=== PATIENT | male | born 1990 | race Caucasian/White ===

== ENCOUNTER 2018-08-04 13:01 | Inpatient (IN) | payer OTHER ==
[~2018-08-04] VITALS: Ht 185.4 cm; Wt 113.4 kg
[2018-08-04] MEDS ORDERED: MULTIVITAMINS1 EAC7 PO (14:05)
[2018-08-04 14:30] LABS: HEMATOCRIT 44.9 % (42.0-52.0); HEMOGLOBIN 15.5 gm/dL (14.0-18.0); MCH 30.9 pg (26.0-34.0); MCHC 34.6 g/dL (28.0-37.0); MCV 89.5 fL (80.0-100.0); RBC 5.02 mil/uL (4.50-6.00); WBC 6.9 thou/uL (4.0-11.0)
[2018-08-04 14:40] LABS: APTT 26.3 Seconds (25.0-31.3); PROTIME 10.2 Seconds (9.20-11.50)
[2018-08-04 14:43] LABS: ALBUMIN 4.1 g/dL (3.4-5.0); CALCIUM 9.3 mg/dL (8.5-10.1); CREATININE 1.1 mg/dL (0.6-1.3); POTASSIUM 3.8 mmol/L (3.5-5.1); TOTAL BILIRUBIN 0.5 mg/dL (<0.1-1.0); TOTAL PROTEIN 7.5 g/dL (6.4-8.2)
[2018-08-04 15:00] VITALS: BP 124/64
[2018-08-04 15:14] LABS: URINE BILIRUBIN NEGATIVE (Negative); URINE BLOOD NEGATIVE (Negative); URINE CLARITY CLEAR; URINE COLOR YELLOW; URINE GLUCOSE-RANDOM NEGATIVE (Negative); URINE KETONES NEGATIVE (Negative); URINE LEUKOCYTES-REFLEX NEGATIVE (Negative); URINE NITRITE-REFLEX NEGATIVE (Negative); URINE PROTEIN NEGATIVE (Negative); URINE SPECIFIC GRAVITY <= 1.005 (1.005-1.030); URINE UROBILINOGEN 0.2 E.U./dl (0.2-1.0)
[2018-08-04 16:52] LABS: CSF PROTEIN 32.9 mg/dl (15-45)
[2018-08-04 17:09] LABS: CSF CLARITY CLEAR; CSF COLOR COLORLESS; VOLUME 12 ml
[2018-08-04 17:10] LABS: CSF RBC 0 /mm3; CSF WBC 2 /mm3 (0-10)
[2018-08-04 17:20] LABS: CSF GLUCOSE 56 mg/dl (40-70)
[2018-08-04 18:00] VITALS: BP 127/82
[2018-08-04 19:00] VITALS: BP 128/76
[2018-08-04 20:00] VITALS: BP 144/87
[2018-08-04 22:01] VITALS: BP 124/37
[2018-08-05 00:01] VITALS: BP 110/53
[2018-08-05 02:00] VITALS: BP 110/60
[2018-08-05 04:00] VITALS: BP 99/59
[2018-08-05 06:00] VITALS: BP 103/64
[2018-08-05 10:00] VITALS: BP 120/65
--- NOTE | 2018-08-05 12:59 | CON ---
[address] [address] CONSULTATION Name: OMIDLISAAllyssa BERTA Room: [address] IN [facility]#: [id number] Admission: 08/04/18 Attend Phys: Eloisa Jo Discharge: Date of : 86 Report #: [id number] THIS REPORT FOR: //name// CC: Srinivasa Lechuga DO HISTORY OF PRESENT ILLNESS: The patient is a 27-year-old male who today noticed some paresthesias of the feet and then of the hands in a somewhat unusual distribution. As he was walking, he also noticed some proximal muscle weakness. He has never had symptoms like this before. With his insurance, he had to see his primary care physician who thought that perhaps he could have Guillain-[place] syndrome. He was then referred to the Emergency Room and admitted to the Intensive Care Unit for further evaluation. As it turns out, both his mother and his grandmother both had Guillain-[place]. The patient states that his symptoms have progressed over the last several days and he feels generally weak. He has not had any difficulty breathing. He has no double vision. He has no difficulty swallowing and has had no difficulty eating. The patient has had a lumbar puncture and this was unremarkable. The patient does have a history of upper respiratory tract infection 2 weeks ago and was treated with antibiotic therapy. PAST MEDICAL HISTORY: Unremarkable. PAST SURGICAL HISTORY: The patient has had several orthopedic procedures. MEDICATIONS: None. ALLERGIES: SULFA. LABORATORY DATA: White blood cell count 6.9, hemoglobin 15.5, hematocrit 44.9, MCV 89.5, platelet count 247,000. INR 1. Urinalysis negative. Spinal tap: White blood cell count 2, RBC count, glucose 56, total protein 32.9. Chemistry: Sodium 138, potassium 3.8, chloride 102, carbon dioxide 28, BUN 14, creatinine 1.1, GFR 79, glucose 97, calcium 9.3. Liver functions normal. NEUROLOGIC: Cranial nerves 2-12 are grossly intact. Motor exam demonstrates symmetrical strength in all 4 extremities. The patient may have some proximal muscle weakness in the shoulders and hips. Reflexes are symmetrical throughout. Coordination demonstrates no evidence of dysmetria. Gait was not tested. 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 He does have some proximal muscle weakness. This evening he will be monitored in the Intensive Care Unit, tomorrow I have asked the nurse to have a double lumen dialysis catheter placed and to contact the Blood Bank to have 3 treatments of plasmapheresis scheduled. Hopefully, this can be done , [place] [address] CONSULTATION Name: OMIDVIANNEY Room: [address] [facility]#: [id number] Admission: 08/04/18 Attend Phys: Eloisa Jo Discharge: Date of : 86 Report #: [id number] Thursday, then it can be determined whether two additional pheresis treatments need to be scheduled. I thank you for your kind referral of this patient. We will continue to follow him with you. <ELECTRONICALLY SIGNED> By: Talia Corley DO 08/05/18 1259 [id number] Corley DO /nt
[2018-08-05 22:00] VITALS: BP 125/72
[2018-08-06] VITALS (8 sets, daily range): BP systolic 95–150; BP diastolic 48–74
[2018-08-06 04:53] LABS: HEMATOCRIT 49.9 % (42.0-52.0); HEMOGLOBIN 16.8 gm/dL (14.0-18.0); MCH 30.8 pg (26.0-34.0); MCHC 33.6 g/dL (28.0-37.0); MCV 91.7 fL (80.0-100.0); MPV 7.1 fl. (7.2-11.1); RBC 5.44 mil/uL (4.50-6.00); RDW-CV 13.3 % (10.5-14.5); WBC 8.4 thou/uL (4.0-11.0)
[2018-08-07 03:14] LABS: HEMATOCRIT 49.4 % (42.0-52.0); HEMOGLOBIN 16.7 gm/dL (14.0-18.0); MCH 30.5 pg (26.0-34.0); MCHC 33.7 g/dL (28.0-37.0); MCV 90.5 fL (80.0-100.0); RBC 5.46 mil/uL (4.50-6.00); RDW-CV 13.3 % (10.5-14.5); WBC 10.4 thou/uL (4.0-11.0)
[2018-08-07 03:47] LABS: CALCIUM 8.4 mg/dL (8.5-10.1); CREATININE 1.1 mg/dL (0.6-1.3); MAGNESIUM 1.9 mg/dL (1.8-2.4); POTASSIUM 4.5 mmol/L (3.5-5.1)
[2018-08-07 08:35] VITALS: BP 136/66
[2018-08-07 13:04] VITALS: BP 126/68
[2018-08-07 20:29] VITALS: BP 137/59
[2018-08-08] VITALS (11 sets, daily range): BP systolic 115–148; BP diastolic 36–121
[2018-08-08 03:18] LABS: CALCIUM 8.5 mg/dL (8.5-10.1)
[2018-08-08 03:23] LABS: HEMATOCRIT 43.7 % (42.0-52.0); HEMOGLOBIN 15.1 gm/dL (14.0-18.0); MCH 31.2 pg (26.0-34.0); MCHC 34.6 g/dL (28.0-37.0); MCV 90.3 fL (80.0-100.0); MPV 7.3 fl. (7.2-11.1); RBC 4.84 mil/uL (4.50-6.00); WBC 7.9 thou/uL (4.0-11.0)
[2018-08-09 03:53] VITALS: BP 103/61
[2018-08-09 08:00] VITALS: BP 134/77
[2018-08-09 12:00] VITALS: BP 135/69
[2018-08-09 16:00] VITALS: BP 113/68
[2018-08-09 20:00] VITALS: BP 119/64
[2018-08-10] VITALS: BP 136/62
[2018-08-10 04:00] VITALS: BP 104/46
[2018-08-10 05:37] LABS: HEMOGLOBIN 14.6 gm/dL (14.0-18.0); MCH 30.6 pg (26.0-34.0); MCHC 33.3 g/dL (28.0-37.0); MCV 91.8 fL (80.0-100.0); MPV 7.3 fl. (7.2-11.1); RBC 4.79 mil/uL (4.50-6.00); RDW-CV 13.3 % (10.5-14.5); WBC 7.1 thou/uL (4.0-11.0)
[2018-08-10 05:46] LABS: APTT 25.4 Seconds (25.0-31.3); PROTIME 9.8 Seconds (9.20-11.50)
[2018-08-10 05:50] LABS: ALBUMIN 4.2 g/dL (3.4-5.0); CALCIUM 8.5 mg/dL (8.5-10.1); POTASSIUM 4.6 mmol/L (3.5-5.1); TOTAL BILIRUBIN 0.5 mg/dL (<0.1-1.0); TOTAL PROTEIN 5.9 g/dL (6.4-8.2)
[2018-08-10 08:00] VITALS: BP 111/61
[2018-08-10 14:09] VITALS: BP 111/61
[2018-08-10 16:00] VITALS: BP 129/63
[2018-08-10 17:00] VITALS: BP 152/71
--- NOTE | 2018-08-13 13:08 | PATH ---
[address] [address] PATHOLOGY RPT PROCEDURE Name: VIANNEY ANNE Room: [address]#: [id number] Admission: 08/04/18 Date of : 86 Discharge: 08/10/18 Report #: [id number] Path Case #: [id number] Note [facility] Accession Number: [id number] TESTS RESULT FLAG UNITS REF RANGE LAB Clinician Provided Cytology Information No. of containers..01 Other (Miscellaneous) Source: CSF DIAGNOSIS: 02 CSF INADEQUATE, INSUFFICIENT CELLS FOR STUDY. ESSENTIALLY ACELLULAR SPECIMEN. Signed out by: 02 Titi Kaur MD, Pathologist NPI- [id number] Performed by: 01 Jessica Fowler, Hydrator Operator ([facility]) Gross description: 01 5ML, COLORLESS, CLEAR /LCS FLAG LEGEND: L-Low Normal,H-High Normal,LL-Alert Low,HH-Alert High <-Panic Low,>-Panic High,A-Abnormal,AA-Critical Abnormal Performed at: [address] [place] [address] Rigo Barragan MD, [address] [place] [address] [facility], [place] [address] Titi Kaur MD, Specimen Comment: A courtesy copy of this report has been sent to Specimen Comment: [phone]. Specimen Comment: Report sent to Specimen Comment: A duplicate report has been generated due to demographic updates. Performed at: [address], [place], [place] [id number] MD Rigo Barragan MD Phone: [phone]
== END 2018-08-10 17:15 | disposition home or self-care (01) | DRG 96 ==
LOC: M.ICU 13:01 → M.2W 08-08 16:45 → M.ICU 08-10 09:55
PROVIDERS: ADMIT Internal Medicine
PROC: 009U3ZX Drainage of Spinal Canal, Percutaneous Approach, Diagnostic (ICD-10-PCS; principal; 2018-08-04)
PROC: B01B1ZZ Fluoroscopy of Spinal Cord using Low Osmolar Contrast (ICD-10-PCS; principal; 2018-08-04)
PROC: B5181ZA Fluoroscopy of Superior Vena Cava using Low Osmolar Contrast, Guidance (ICD-10-PCS; 2018-08-05)
PROC: 02HV33Z Insertion of Infusion Device into Superior Vena Cava, Percutaneous Approach (ICD-10-PCS; 2018-08-05)
PROC: B548ZZA Ultrasonography of Superior Vena Cava, Guidance (ICD-10-PCS; 2018-08-05)
PROC: 6A551Z3 Pheresis of Plasma, Multiple (ICD-10-PCS; 2018-08-10)
DX: G61.0 Guillain-Barre syndrome (principal); Z88.2 Allergy status to sulfonamides

== ENCOUNTER 2018-10-26 13:39 | Emergency (ER) | payer OTHER ==
[~2018-10-26] VITALS: Ht 185.4 cm; Wt 108.9 kg
[~2018-10-26 13:39] MED LIST: MULTIVITAMINS1 EAC7 PO
[2018-10-26 14:14] LABS: BE -0.7 mmol/L (-2 to +3); HCO3 24.3 mmol/L (22.0-26.0); PCO2 41.4 mmHg (35.0-45.0); pH 7.386 (7.340-7.450)
[2018-10-26 14:15] LABS: PO2 420.7 mmHg (75.0-100.0)
[2018-10-26 14:22] LABS: ABSOLUTE BASOPHILS 0.1 thou/uL (0.0-0.2); ABSOLUTE EOSINOPHILS 0.1 thou/uL (0.0-0.7); ABSOLUTE LYMPHOCYTES 1.7 thou/uL (0.8-5.3); ABSOLUTE MONOCYTES 0.5 thou/uL (0.0-1.2); ABSOLUTE NEUTROPHILS 4.1 thou/uL (1.6-8.1); BASOPHILS 1.2 %; EOSINOPHILS 1.3 %; HEMATOCRIT 46.1 % (42.0-52.0); HEMOGLOBIN 15.8 gm/dL (14.0-18.0); LYMPHOCYTES 26.2 %; MCH 30.7 pg (26.0-34.0); MCHC 34.2 g/dL (28.0-37.0); MCV 89.6 fL (80.0-100.0); MONOCYTES 7.9 %; MPV 7.1 fl. (7.2-11.1); NUCLEATED RBCS 0 /100WBC; PLATELET COUNT* 251 thou/uL (150-400); POLYS 63.4 %; RBC 5.14 mil/uL (4.50-6.00); WBC 6.4 thou/uL (4.0-11.0)
[2018-10-26 14:29] LABS: ANION GAP 8 mmol/L (7-16); BUN 15 mg/dL (7-18); CALCIUM 8.7 mg/dL (8.5-10.1); CHLORIDE 102 mmol/L (98-107); CO2 30 mmol/L (21-32); CREATININE 1.2 mg/dL (0.6-1.3); GLUCOSE 94 mg/dL (70-99); SODIUM 140 mmol/L (136-145)
[2018-10-26 14:41] LABS: ALKALINE PHOSPHATASE 58 U/L (46-116); SGOT 17 U/L (15-37); SGPT 31 U/L (30-65); TOTAL BILIRUBIN 0.4 mg/dL (<0.1-1.0); TOTAL PROTEIN 7.4 g/dL (6.4-8.2); TROPONIN-I LEVEL <0.06 ng/mL (<0.06)
[2018-10-26 14:57] VITALS: BP 122/64
--- NOTE | 2018-10-27 13:50 | EKG ---
[place] [address] ELECTROCARDIOGRAM REPORT Name: VIANNEY ANNE BERTA Room: [facility].#: [id number] Admission: 10/26/18 Attend Phys: Discharge: 10/26/18 Date of : 86 Report #: [id number] THIS REPORT FOR: //name// [facility] ED Test Date: 2018-10-26 Test Time: 14:38:52 Pat Name: VIANNEY ANNE Department: Room: Gender: Accounting Practice Manager: [place] : 1990 Requested By: John Fernandez Order Number: [id number] MD: Lg Osuna Measurements Intervals [place] Rate: 69 P: 38 OR: 155 QRS: 43 QRSD: 115 T: 34 QT: 379 QTc: 406 Interpretive Statements Sinus rhythm Nonspecific intraventricular conduction delay Baseline wander in lead(s) V2 No previous ECG available for comparison Electronically Signed On 10-27-2018 13:50:21 REVIVAL CLERK by Lg Osuna [email or web address] <ELECTRONICALLY SIGNED> By: Lg Osuna MD, [facility] 10/27/18 1350 1438 1438 Lg Osuna MD, FACC /EPI
== END 2018-10-26 14:57 | disposition home or self-care (01) ==
LOC: M.ERS 13:39
PROVIDERS: Emergency Medicine Emergency Medical Services
DX: Z77.098 Contact with and (suspected) exposure to other hazardous, chiefly nonmedicinal, chemicals (principal); Z88.2 Allergy status to sulfonamides